=== PATIENT | female | born 1940 | race Caucasian/White ===

== ENCOUNTER 2017-06-30 19:12 | Emergency (ER) | payer MEDICARE, OTHER ==
[2017-06-30] MEDS ORDERED: Tetan/Diph/Pertus SYR(Tdap)* 0.5 ML SYR(BOOSTRIX) use SYR IM ONE (19:26)
--- NOTE | 2017-06-30 19:51 | RAD ---
INDICATION: Rat trap left hand. Injury COMPARISON: None TECHNIQUE: AP, lateral, and oblique views were obtained. FINDINGS: There is no definitive fracture. There is artifact produced by a reported rat trap which is embedded in the palm of the hand. IMPRESSION: NO ACUTE FRACTURE. RECOMMEND REPEATING THE IMAGE FOLLOWING REMOVAL OF THE TRAP
[2017-06-30] MEDS ORDERED: Acetaminophen TAB* 325 MG PO ONE (20:37)
[2017-06-30] MEDS ORDERED: Ibuprofen TAB* 400 MG PO ONE (20:37)
--- NOTE | 2017-06-30 21:02 | RAD ---
INDICATION: Left hand injury COMPARISON: June 30, 2017 TECHNIQUE: AP, lateral, and oblique views were obtained. FINDINGS: There is removal of the rat trap. There is no underlying fracture or foreign body. There is osteopenia with interphalangeal joint space narrowing. 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
[2017-06-30] MEDS ORDERED: Cephalexin CAP* 500 MG PO ONE (21:46)
--- NOTE | 2017-06-30 21:46 | ED ---
Upper Extremity Pain - HPI Summary HPI Summary: Complains of having large rat trap close on palm of left hand with partial penetration of palm this evening. Denies loss of sensation or function. Tetanus status unknown. - History of Current Complaint Chief Complaint: EDExtremityUpper Stated Complaint: RAT TRAP STUCK ON LT HAND Time Seen by Provider: 06/30/17 19:53 Hx Obtained From: Patient Mechanism Of Injury: Blunt Trauma Onset/Duration: Started Minutes Ago Severity Initially: Moderate Severity Currently: Moderate Pain Location: Hand Character: Sharp - Allergies/Home Medications Allergies/Adverse Reactions: Allergies Allergy/AdvReac Type Severity Reaction Status Date / Time oxycodone AdvReac Vomiting Verified 06/30/17 20:26 PMH/Surg Hx/FS Hx/Imm Hx - Immunization History Date of Tetanus Vaccine: unsure of tetanus status Infectious Disease History: No Infectious Disease History: Denies: Traveled Outside the [place] in Last 30 Days - Social History Alcohol Use: Occasionally Substance Use Type: Reports: None Smoking Status (MU): Never Smoked Tobacco Review of Systems Constitutional: Negative Eyes: Negative ENT: Negative Cardiovascular: Negative Respiratory: Negative Gastrointestinal: Negative Genitourinary: Negative Musculoskeletal: Negative Skin: Negative Neurological: Negative Psychological: Normal All Other Systems Reviewed And Are Negative: Yes Physical Exam - Summary Physical Exam Summary: PMS intact on left hand. Patient able to flex and extend left thumb at each individual joint. Also able to touch thumb to tip of all other 4 fingers. Metal arm of rat trap embedded in palmar surface of the thumb base. Bleeding controlled. Triage Information Reviewed: Yes Vital Signs On Initial Exam: Initial Vitals Temp Pulse Resp BP Pulse Ox 98 F 76 16 135/65 98 06/30/17 19:15 06/30/17 19:15 06/30/17 19:15 06/30/17 19:15 06/30/17 19:15 Vital Signs Reviewed: Yes Appearance: Positive: Well-Appearing Skin: Positive: Warm Head/Face: Positive: Normal Head/Face Inspection Eyes: Positive: Normal Neck: Positive: Supple Respiratory/Lung Sounds: Positive: Clear to Auscultation Cardiovascular: Positive: Normal Abdomen Description: Positive: Nontender Musculoskeletal: Positive: Normal Neurological: Positive: Normal Psychiatric: Positive: Normal AVPU Assessment: Alert - Steve Coma Scale Best Eye Response: 4 - Spontaneous Best Motor Response: 6 - Obeys Commands Best Verbal Response: 5 - Oriented Coma Scale Total: 15 Diagnostics - Vital Signs Vital Signs Temp Pulse Resp BP Pulse Ox 06/30/17 19:15 98 F 76 16 135/65 98 - Laboratory Lab Statement: Any lab studies that have been ordered have been reviewed, and results considered in the medical decision making process. - Radiology hand Xray Interpretation: No Acute Changes Radiology Interpretation Completed By: Radiologist hand post trap removal; Xray Interpretation: No Acute Changes Radiology Interpretation Completed By: Radiologist Course/Dx - Course Course Of Treatment: Metra removed from patient's hand. Serial x-rays confirm no fracture or foreign body. PMS intact. Wound clean and flushed with saline and Betadine. No indication for suture. We'll provide prescription for Keflex. - Diagnoses Provider Diagnoses: Hand trauma Discharge - Sign-Out/Discharge Documenting (check all that apply): Discharge/Admit/Transfer - Discharge Plan Condition: Stable Disposition: HOME Prescriptions: Cephalexin CAP* [Keflex CAP*] 500 mg PO TID 7 Days #21 cap Patient Education Materials: Wound Infection (ED) Referrals: Clarissa Chavez MD [Primary Care Provider] - Additional Instructions: Take antibiotics as directed. Follow-up with primary care. Return to the ED for any new or worsening symptoms - Billing Disposition and Condition Condition: STABLE Disposition: HOME
[2017-06-30 22:09] VITALS: BP 140/56
== END 2017-06-30 22:05 | disposition home or self-care (01) ==
LOC: ED 19:12
DX: S69.92XA Unspecified injury of left wrist, hand and finger(s), initial encounter (principal); W22.8XXA Striking against or struck by other objects, initial encounter; Y92.9 Unspecified place or not applicable; Z88.5 Allergy status to narcotic agent
CPT/HCPCS: 90471; 90715; 99282; A9270-GY

== ENCOUNTER 2022-06-29 12:24 | Observation (INO) ==
[2022-06-29] MEDS ORDERED: NS 0.9% 1000 ml BAG 1,000 ML IV ONE (13:00)
[2022-06-29 13:15] LABS: ABS Eosinophils 0.1 10^3/uL (0.0-0.5); ABS Lymphocytes 1.2 10^3/uL (1.0-4.8); ABS Monocytes 0.4 10^3/uL (0.0-0.9); ABS Neutrophils 6.4 10^3/uL (1.5-7.6); Eosinophil % 0.8 %; Lymphocyte % 14.6 %; Mean Corpuscular Hemoglobin 33.4 pg (27-33); Mean Corpuscular Volume 98.1 fL (80-97); Mean Platelet Volume 7.6 fL (7.5-11.2); Platelet Count 286 10^3/uL (150-450); Red Blood Count 4.49 10^6/uL (3.63-4.92); Red Cell Distribution Width 13.7 % (12-17); White Blood Count 8.1 10^3/uL (3.8-11.8)
[2022-06-29 13:23] LABS: INR 1.09 (0.88-1.18)
[2022-06-29 13:55] LABS: Albumin 4.2 g/dL (3.2-5.2); Albumin/Globulin Ratio 1.6 (1-3); Calcium 10.4 mg/dL (8.6-10.3); Creatinine, Serum 1.13 mg/dL (0.51-0.95); Globulin 2.7 g/dL (2-4); Potassium 4.7 mmol/L (3.5-5.0); Total Bilirubin 0.6 mg/dL (0.2-1.0); Total Protein 6.9 g/dL (6.4-8.9); eGFR CKD-EPI 48.9 (>60)
[2022-06-29 14:07] LABS: TSH Ultra Thyroid Stim Horm 3.37 mcIU/mL (0.34-5.60)
[2022-06-29 14:39] LABS: High Sensitivity Troponin 1 Hr 4 pg/mL (<15)
[2022-06-29] MEDS ORDERED: Enoxaparin 40 MG/0.4 ML SYR SUBCUT SCH (18:00)
[2022-06-29 19:00] LABS: Urine Appearance Clear; Urine Bilirubin Negative (Negative); Urine Blood Negative (Negative); Urine Color Yellow; Urine Glucose Negative (Negative); Urine Ketones Negative (Negative); Urine Nitrite Negative (Negative); Urine Protein Negative (Negative); Urine Specific Gravity 1.009 (1.002-1.030); Urine Urobilinogen Negative (Negative)
[2022-06-30] MEDS ORDERED: FINASTERIDE 1 MG PO SCH (09:00)
[2022-06-30 15:53] VITALS: BP 126/64
== END 2022-06-30 15:49 | disposition home or self-care (01) ==
LOC: EDHOLD 12:24 → ED 12:24 → SUATTDRO 16:16 → EDHOLD 06-30 15:48
PROVIDERS: ADMIT Internal Medicine; ATTEND Internal Medicine